=== PATIENT | female | born 1995 | race Caucasian/White ===

== ENCOUNTER → 2024-07-19 18:35 | Outpatient (CLI) | payer SELFPAY | PROVIDERS: Visit Provider Chiropractor | DX: R30.0 Dysuria (principal) | CPT/HCPCS: 87086; 87147 ==

== ENCOUNTER → 2025-01-16 09:12 | Outpatient (CLI) | payer SELFPAY | PROVIDERS: Visit Provider Chiropractor | DX: R39.11 Hesitancy of micturition (principal); R10.20 Pelvic and perineal pain unspecified side | CPT/HCPCS: 87077; 87086 ==